=== PATIENT | male | born 1960 | race Caucasian/White ===

== ENCOUNTER → 2017-01-21 | Outpatient (CLI) | payer OTHER ==
--- NOTE | 2017-01-21 15:23 | REP ---
Right foot series: Four views. History: Right foot pain. Injury. Findings: Four views of the right foot show an accessory ossicle at the talonavicular articulation superiorly. There is minimal heel spurring. Bones, joints, and soft tissues are otherwise unremarkable. No evidence of fracture or periosteal reaction. Impression: No acute bony abnormality. Minimal heel spurring. Small accessory ossicle at the talonavicular articulation seen on lateral film. Signed by Jack Chi MD 01/21/2017 05:29 P
== END ==
LOC: M LRY 12:23
PROVIDERS: ATTEND Nurse Practitioner Family
DX: M79.671 Pain in right foot (principal)
CPT/HCPCS: 73630; G0463

== ENCOUNTER 2022-05-10 06:56 | Emergency (ER) | payer MEDICARE, OTHER ==
[~2022-05-10] VITALS: Ht 177.8 cm; Wt 84.8 kg
[2022-05-10] MEDS ORDERED: NS 1,000 ML IV ONE ×2 (07:00→08:30)
[2022-05-10 07:20] LABS: VENOUS BASE EXCESS -5.7 (-2.0-2.0); VENOUS HCO3 21.2 MEQ/L (23.0-27.0); VENOUS O2 SATURATION 98.5 % (60.0-80.0); VENOUS PARTIAL PRESSURE CO2 46.6 mmHg (38.0-50.0); VENOUS PARTIAL PRESSURE O2 147.7 mmHg (30.0-50.0); VENOUS PH 7.276 UNITS (7.330-7.430); VENOUS STANDARD HCO3 19.9 MEQ/L; VENOUS TOTAL CO2 22.6 MEQ/L (24.0-28.0)
[2022-05-10 07:25] LABS: BASO # 0.1 10^3/uL (0.0-0.2); BASO % 0.7 % (0.0-1.0); EOS # 0.3 10^3/uL (0.0-0.5); EOS % 3.2 % (0.0-3.0); HEMATOCRIT 42.6 % (42.0-52.0); HEMOGLOBIN 13.9 g/dl (13.5-17.5); LYMPH # 2.5 10^3/uL (1.5-5.0); LYMPH % 28.7 % (24.0-44.0); MEAN CORPUSCULAR HEMOGLOBIN 29.8 pg (27.0-33.0); MEAN CORPUSCULAR HGB CONC 32.6 g/dl (32.0-36.5); MEAN CORPUSCULAR VOLUME 91.2 fl (80.0-96.0); MONO # 0.4 10^3/uL (0.0-0.8); MONO % 4.9 % (2.0-8.0); NEUTROPHILS # 5.2 10^3/uL (1.5-8.5); NEUTROPHILS % 59.9 % (36.0-66.0); PLATELET COUNT, AUTOMATED 285 10^3/uL (150-450); RED BLOOD COUNT 4.67 10^6/uL (4.30-6.10); WHITE BLOOD COUNT 8.7 10^3/uL (4.0-10.0)
[2022-05-10 07:49] LABS: ETHYL ALCOHOL (ETHANOL) 0.003 % (0.000-0.010)
[2022-05-10 07:51] LABS: ACETAMINOPHEN LEVEL < 2.0 UG/ML (10.0-20.0); BILIRUBIN,DIRECT < 0.1 MG/DL (<0.4); CPK CREATINE PHOSPHOKINASE 300 U/L (46-171); SALICYLATE LEVEL < 3.0 MG/DL (<30)
[2022-05-10 07:55] LABS: ALBUMIN 3.5 G/DL (3.2-5.2); ALKALINE PHOSPHATASE 59 U/L (46-116); ALT/SGPT 96 U/L (7.0-40); AST/SGOT 70 U/L (<34); BILIRUBIN,TOTAL 0.3 MG/DL (0.3-1.2); BLOOD UREA NITROGEN 16 MG/DL (9-23); CALCIUM LEVEL 8.1 MG/DL (8.5-10.1); CARBON DIOXIDE LEVEL 25 MMOL/L (20-31); CHLORIDE LEVEL 106 MMOL/L (98-107); CK-MB VALUE MASS 4.3 NG/ML (<3.6); CREATININE FOR GFR 0.97 MG/DL (0.70-1.30); GLOMERULAR FILTRATION RATE > 60.0 (>56); GLUCOSE, FASTING 259 MG/DL (60-100); MB/CK RELATIVE INDEX 1.43 (< OR =4); POTASSIUM SERUM 3.8 MMOL/L (3.5-5.1); SODIUM LEVEL 139 MMOL/L (136-145); THYROID STIMULATING HORMONE 13.089 uIU/ML (0.55-4.78); TOTAL PROTEIN 6.6 G/DL (5.7-8.2)
[2022-05-10 07:58] LABS: RSV AMPLIFICATION NEGATIVE (NEGATIVE)
[2022-05-10 08:29] LABS: OSMOLALITY SERUM 299 MOSM/KG (275-295)
[2022-05-10 10:15] LABS: CK-MB VALUE MASS 6.3 NG/ML (<3.6)
[2022-05-10 10:17] LABS: MB/CK RELATIVE INDEX 1.72 (< OR =4)
[2022-05-10] MEDS ORDERED: DRON5CAP13 (10:47)
[2022-05-10] MEDS ORDERED: LIDO1PAD TOP (10:47)
[2022-05-10] MEDS ORDERED: CYCL-707 (10:47)
[2022-05-10] MEDS ORDERED: OXYC7.5T3 PO (10:47)
[2022-05-10] MEDS ORDERED: SILD100T (10:47)
[2022-05-10] MEDS ORDERED: GABA600T4 (10:47)
[2022-05-10] MEDS ORDERED: CLON-412 (10:47)
[2022-05-10 14:42] LABS: BARBITURATES URINE NEGATIVE (NEGATIVE); BENZODIAZEPINES URINE NEGATIVE (NEGATIVE); COCAINE METABOLITE URINE NEGATIVE (NEGATIVE); METHADONE URINE NEGATIVE (NEGATIVE); OPIATES URINE NEGATIVE (NEGATIVE); PHENCYCLIDINE URINE NEGATIVE (NEGATIVE)
[2022-05-10 14:43] LABS: AMPHETAMINES LEVEL URINE POSITIVE (NEGATIVE); CANNABINOIDS URINE POSITIVE (NEGATIVE)
[2022-05-10 17:15] VITALS: BP 134/81
== END 2022-05-10 17:35 | disposition home or self-care (01) ==
LOC: M ED 06:56
DX: T48.0X1A Poisoning by oxytocic drugs, accidental (unintentional), initial encounter (principal); T48.1X1A Poisoning by skeletal muscle relaxants [neuromuscular blocking agents], accidental (unintentional), initial encounter; R91.1 Solitary pulmonary nodule; F12.10 Cannabis abuse, uncomplicated; G89.29 Other chronic pain; Z91.041 Radiographic dye allergy status

== ENCOUNTER 2023-11-12 17:17 | Emergency (ER) | payer MEDICARE, OTHER ==
[~2023-11-12] VITALS: Ht 177.8 cm; Wt 84.1 kg
[~2023-11-12 17:17] MED LIST: CLON-412; CYCL-707; DRON5CAP13; GABA600T4; LIDO1PAD TOP; OXYC7.5T3 PO; SILD100T
[2023-11-12] MEDS ORDERED: PREG75CA3 (17:37)
[2023-11-12] MEDS ORDERED: TIZA10TA (17:37)
[2023-11-12] MEDS ORDERED: SILD100T7 (17:37)
[2023-11-12] MEDS: NS 1,000 ML IV SCH (18:23)
[2023-11-12 18:35] LABS: BASO # 0.1 10^3/uL (0.0-0.2); BASO % 0.6 % (0.0-1.0); EOS # 0.3 10^3/uL (0.0-0.5); EOS % 3.8 % (0.0-3.0); HEMATOCRIT 40.8 % (42.0-52.0); HEMOGLOBIN 13.9 g/dl (13.5-17.5); LYMPH # 1.5 10^3/uL (1.5-5.0); LYMPH % 16.9 % (24.0-44.0); MEAN CORPUSCULAR HEMOGLOBIN 30.7 pg (27.0-33.0); MEAN CORPUSCULAR HGB CONC 34.1 g/dl (32.0-36.5); MEAN CORPUSCULAR VOLUME 90.1 fl (80.0-96.0); MONO # 0.5 10^3/uL (0.0-0.8); MONO % 5.9 % (2.0-8.0); NEUTROPHILS # 6.4 10^3/uL (1.5-8.5); NEUTROPHILS % 72.2 % (36.0-66.0); PLATELET COUNT, AUTOMATED 310 10^3/uL (150-450); RED BLOOD COUNT 4.53 10^6/uL (4.30-6.10); WHITE BLOOD COUNT 8.9 10^3/uL (4.0-10.0)
[2023-11-12 18:57] LABS: LIPASE 31 U/L (12-53)
[2023-11-12 18:59] LABS: ALBUMIN 3.6 G/DL (3.2-5.2); ALKALINE PHOSPHATASE 58 U/L (46-116); ALT/SGPT 28 U/L (7.0-40); AST/SGOT 15 U/L (<34); BILIRUBIN,DIRECT < 0.1 MG/DL (<0.4); BILIRUBIN,TOTAL 0.2 MG/DL (0.3-1.2); BLOOD UREA NITROGEN 14 MG/DL (9-23); CALCIUM LEVEL 8.5 MG/DL (8.3-10.6); CARBON DIOXIDE LEVEL 28 MMOL/L (20-31); CHLORIDE LEVEL 107 MMOL/L (98-107); CREATININE FOR GFR 0.65 MG/DL (0.70-1.30); GLOMERULAR FILTRATION RATE > 60.0 (>49); GLUCOSE, FASTING 116 MG/DL (74-106); POTASSIUM SERUM 4.1 MMOL/L (3.5-5.1); SODIUM LEVEL 142 MMOL/L (136-145); TOTAL PROTEIN 6.5 G/DL (5.7-8.2)
[2023-11-12 19:37] VITALS: BP 167/96; TEMP 96.3; O2SAT 97
== END 2023-11-12 19:40 | disposition home or self-care (01) ==
LOC: M ED 17:17 → EDBD 17:17 → M ED 19:40
DX: R10.9 Unspecified abdominal pain (principal); Z91.041 Radiographic dye allergy status; Z79.899 Other long term (current) drug therapy